=== PATIENT | male | born 1945 | race Caucasian/White ===

== ENCOUNTER 2017-02-14 17:44 | Inpatient (IN) | payer MEDICARE, BC ==
[~2017-02-14] VITALS: Ht 172.7 cm; Wt 74.8 kg
[~2017-02-14 17:44] MED LIST: ALPRAZOLAM1 MG PO; ARICEPT5 MG PO; ASPIR 8181 MG; METFORMIN HCL500 MG PO; PLAVIX75 MG PO; SERTRALINE HCL100 MG PO; TRAZODONE HCL100 MG
[2017-02-14 20:53] VITALS: BP 133/67
[2017-02-14 21:20] VITALS: BP 133/67
[2017-02-14] MEDS ORDERED: ZOLPIDEM TARTRATE 5 MG TAB PO PRN (21:30)
[2017-02-14] MEDS ORDERED: ACETAMINOPHEN 650 MG SUPP PR PRN (21:30)
[2017-02-14] MEDS ORDERED: ONDANSETRON HCL INJ 2 MG/ML VIAL IV PRN (21:30)
[2017-02-14] MEDS ORDERED: HYDRALAZINE HCL 25 MG TAB PO PRN (21:30)
[2017-02-14] MEDS ORDERED: DEXTROSE 50% SYRINGE 50 ML IV PRN (22:00)
[2017-02-14] MEDS: MORPHINE SULFATE 2 MG/ML SYR IV PRN (22:33)
[2017-02-15] VITALS: BP 111/58
[2017-02-15] MEDS ORDERED: ACETAMINOPHEN 325 MG TAB PO PRN (00:30)
[2017-02-15] MEDS ORDERED: LISINOPRIL2.5 MG PO (03:28)
[2017-02-15] MEDS ORDERED: OXYBUTYNIN CHLOR5 MG PO (03:28)
[2017-02-15] MEDS ORDERED: SIMVASTATIN20 MG PO (03:28)
[2017-02-15 04:00] VITALS: BP 102/55
[2017-02-15] MEDS ORDERED: SODIUM CHLORIDE 0.9% 250ML 250 ML ONE (05:06)
[2017-02-15] MEDS: VANCOMYCIN 1GM/NS 250 ML 250 ML IV SCH ×2 (05:13→17:59)
[2017-02-15 07:17] LABS: BASOPHILS % 0.2 % (0.0-1.0); EOSINOPHILS # (AUTO) 0.1 (0.0-0.4); EOSINOPHILS % 0.9 % (0.0-6.0); HEMATOCRIT 34.5 % (38.2-49.6); HEMOGLOBIN 12.2 g/dL (14.0-18.0); LYMPHOCYTES # (AUTO) 0.7 (1.0-3.2); LYMPHOCYTES % 11.6 % (18.0-39.1); MEAN CORPUSCULAR HEMOGLOBIN 33.1 pg (28-32); MEAN CORPUSCULAR HGB CONC 35.4 g/dL (31-35); MEAN CORPUSCULAR VOLUME 93.5 fL (81-99); MONOCYTES # (AUTO) 0.7 (0.2-0.8); MONOCYTES % 10.5 % (4.4-11.3); NEUTROPHILS # (AUTO) 4.8 (2.1-6.9); NEUTROPHILS % 76.2 % (38.7-80.0); PLATELET COUNT 119 x10e3/uL (140-360); RED BLOOD COUNT 3.69 x10e6/uL (4.3-5.7); RED CELL DISTRIBUTION WIDTH 12.5 % (11.7-14.4)
[2017-02-15] MEDS: INSULIN REGULAR, HUMAN 100 UNIT/1 ML 3ML VIAL SQ SCH ×4 (07:30→21:40)
[2017-02-15 07:37] LABS: BLOOD UREA NITROGEN 18 mg/dL (7-26); BUN/CREATININE RATIO 21 (6-25); CALCIUM 9.1 mg/dL (8.4-10.2); CARBON DIOXIDE 21 mmol/L (22-29); CHLORIDE 105 mmol/L (98-107); CREATININE, SERUM 0.87 mg/dL (0.72-1.25); EST GLOMERULAR FILTRATION RATE > 60 ML/MIN (60-); GLUCOSE 88 mg/dL (74-118); SODIUM 136 mmol/L (136-145)
[2017-02-15 08:00] VITALS: BP 121/69
[2017-02-15 09:45] LABS: CHOL/HDL RATIO 2.4 (3.9-4.7)
[2017-02-15] MEDS: HYDROCODONE/APAP 5MG-325MG TAB PO PRN ×2 (10:45→22:14)
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
[2017-02-15 12:00] VITALS: BP 120/74
[2017-02-15] MEDS: PIPER-TAZ 3.375 GM 50 ML IV SCH ×2 (13:42→22:07)
[2017-02-15] MEDS ORDERED: PIPER-TAZ 3.375 GM 100 ML IV SCH (14:00)
[2017-02-15] MEDS: ALBUTEROL/IPRATROPIUM 3 ML NEB NEB PRN (14:50)
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
[2017-02-15] MEDS ORDERED: BACITRACIN 50,000 UNIT VIAL ONE (16:04)
[2017-02-15 16:08] VITALS: BP 117/56
[2017-02-15] MEDS ORDERED: MUPIROCIN 2% OINT 22 GM TUBE ONE (16:42)
[2017-02-15] MEDS ORDERED: BUPIVACAINE HCL 0.5% INJ 30 ML VIAL INJ ONE (16:44)
[2017-02-15] MEDS: FAMOTIDINE 20 MG TAB PO SCH (17:59)
[2017-02-15] MEDS: METFORMIN HCL 500 MG TAB PO SCH (17:59)
[2017-02-15] MEDS ORDERED: DEXAMETHASONE SOD PHOS INJ 4 MG/ML VIAL ONE (18:02)
[2017-02-15] MEDS ORDERED: KETOROLAC TROMETHAMINE 30 MG/ML VIAL ONE (18:02)
[2017-02-15] MEDS ORDERED: PROPOFOL IV EMULSION 10 MG/ML 20 ML VIAL ONE (18:02)
[2017-02-15] MEDS ORDERED: ONDANSETRON HCL INJ 2 MG/ML VIAL ONE (18:02)
[2017-02-15] MEDS ORDERED: SEVOFLURANE INHAL SOLN 250 ML PEN BTL ONE (18:02)
--- NOTE | 2017-02-15 18:03 | Diagnostic Imaging Report ---
PROCEDURE:HAND RIGHT 2 VIEWS COMPARISON:None. INDICATIONS:POST-OP/DOG BITE FINDINGS: Soft tissue swelling of the radial aspect of the hand. A punctate density projects over the trapezium on AP view, not seen on lateral view and likely external to the patient. No radiopaque foreign bodies. No acute fractures or dislocations. Joint spaces are unremarkable. CONCLUSION: No acute osseous abnormalities. Dictated by: Reji Gleason M.D. on 02/15/2017 at 18:12 Electronically approved by: Reji Gleason M.D. on 02/15/2017 at 18:12
[2017-02-15] MEDS ORDERED: FENTANYL CITRATE/PF 100MCG/2 ML INJ ONE (19:05)
[2017-02-15] MEDS ORDERED: MIDAZOLAM HCL 2 MG/2 ML VIAL ONE (19:05)
[2017-02-15 20:00] VITALS: BP 112/68
[2017-02-15] MEDS: SERTRALINE HCL 100 MG TAB PO SCH (21:40)
[2017-02-15] MEDS: DONEPEZIL HCL 5 MG TAB PO SCH (21:40)
[2017-02-15] MEDS: SIMVASTATIN 20 MG TAB PO SCH (21:40)
[2017-02-16] VITALS (7 sets, daily range): BP systolic 93–136; BP diastolic 52–79
[2017-02-16] MEDS: PIPER-TAZ 3.375 GM 50 ML IV SCH ×3 (05:30→22:00)
[2017-02-16] MEDS: VANCOMYCIN 1GM/NS 250 ML 250 ML IV SCH ×2 (06:09→17:00)
[2017-02-16] MEDS: INSULIN REGULAR, HUMAN 100 UNIT/1 ML 3ML VIAL SQ SCH ×4 (07:30→20:13)
[2017-02-16] MEDS: MORPHINE SULFATE 2 MG/ML SYR IV PRN (08:02)
[2017-02-16] MEDS: CLOPIDOGREL BISULFATE 75 MG TAB PO SCH (08:05)
[2017-02-16] MEDS: METFORMIN HCL 500 MG TAB PO SCH ×2 (08:05→17:16)
[2017-02-16] MEDS: OXYBUTYNIN CHLORIDE 5 MG TAB PO SCH (08:05)
[2017-02-16] MEDS: ASPIRIN 81 MG CHEW TAB PO SCH (08:05)
[2017-02-16] MEDS: ALPRAZOLAM 1 MG TAB PO SCH (08:05)
[2017-02-16] MEDS: FAMOTIDINE 20 MG TAB PO SCH ×2 (08:05→17:16)
[2017-02-16] MEDS: LISINOPRIL 2.5 MG TAB PO SCH (08:05)
[2017-02-16] MEDS ORDERED: DEXTROSE 50% SYRINGE 50 ML IV PRN (08:45)
--- NOTE | 2017-02-16 09:14 | Progress Note ---
DATE: February 16, 2017 TIME: 8:43 a.m. OVERNIGHT: Patient underwent further surgery for debridement of the hand. REVIEW OF SYSTEMS: Denies any dizziness or chest pain. VITAL SIGNS: Reviewed. PHYSICAL EXAMINATION GENERAL APPEARANCE: A tired-appearing man, resting in bed. HEENT: Anicteric. CARDIOVASCULAR: Normal S1 and S2. LUNGS: Moderate breath sounds. ABDOMEN: Soft, nontender and nondistended. EXTREMITIES: No edema or calf tenderness of the lower extremities. Dressing on the right hand dorsal surface with further debridement noted. No odor. There are tenderness and warmth. SKIN: Dry. PSYCHIATRIC: Flat affect. NEUROLOGIC: Alert and oriented times 3. LABS: Reviewed. MEDICATIONS: Reviewed. ASSESSMENT AND PLAN: This is a 71-year-old man. 1. Dog bite. 2. Right hand cellulitis/status post debridement. 3. Diabetes mellitus, type 2. Hemoglobin A1c 4.9, LDL 65, triglycerides 62. 4. Overweight state. 5. Hand pain. 6. Anxiety/depression. 7. Coronary artery disease with history of stent. PLAN 1. Continue IV vancomycin and IV Zosyn. 2. Patient is status post debridement. 3. Continue metformin and diabetes control. 4. Continue antihypertensive medications. 5. Continue anxiolytics. 6. Obtain labs this morning and obtain Accu-Cheks. Job#: [id number]
--- NOTE | 2017-02-16 09:33 | Operative Report ---
DATE OF PROCEDURE: February 15, 2017 PREOPERATIVE DIAGNOSES 1. Dog bite, right hand. 2. Purulent extensor tenosynovitis, right hand. POSTOPERATIVE DIAGNOSES 1. Dog bite, right hand. 2. Purulent extensor tenosynovitis, right hand. PROCEDURE: Drainage of extensor tendon sheath, right hand. ANESTHESIA: General. HISTORY: The patient is a 71-year-old right-hand dominant male who was admitted on February 14, 2017. He states that he sustained a dog bite to the right hand approximately 4 days prior to admission. He states that on February 14, 2017, the hand was quite swollen and infected, and he went to an urgent care center where they performed and incision and drainage. He was then sent to [facility] where he was admitted for further care and treatment. He was seen on the morning on February 15, 2017, and the dressing was removed, and copious amounts of purulent exudate was still emanating from the wound. For that reason, he was taken to the OR urgently that day for definitive treatment. The risks, benefits and alternatives of treatment were discussed with the patient. He is prepared to undergo the procedures outlined. DETAILS OF PROCEDURE: Patient was marked preoperatively in the holding area. He was brought to the operating theater. After the induction of adequate general anesthesia, he was prepped and draped in a supine position. A time out was performed. The right upper extremity was elevated for 3 minutes, and then a tourniquet was inflated to a pressure of 250 mmHg. The previous incision was marked out, and extensions proximally and distally were marked out as well. The incisions were made through the skin and subcutaneous tissues and venous tributaries were controlled with bipolar cautery. Immediately upon entering the subcutaneous space, copious amounts of purulent exudate was noted. The incision was deepened down to the tendon of the extensor indices proprius where purulence was noted along its tract. At this point, the inspection of all the extensor tendons was performed, and then copious amounts of irrigation ensued until the effluent was then clean. At this point, inspection of all quadrants of the dorsal aspect of the hand was performed. No further loculations were noted. The tendons appeared to be intact and did not appear to be damaged in any. Radiographs showed no acute bony injuries or dislocations. Once the wound was completely free of purulent exudate, it was then packed with 0.25-inch packing. Then the skin was loosely approximated using 5-0 nylon in an interrupted horizontal mattress fashion. A Marcaine field block was performed at the operative site. The tourniquet was deflated. All the fingers pinked up nicely. A sterile bulky conforming bandage was applied. The patient was returned to the recovery room in satisfactory condition, and then transferred back to his hospital room for further care and treatment. Job#: [id number] DESTINY
[2017-02-16 09:36] LABS: BASOPHILS % 0.2 % (0.0-1.0); EOSINOPHILS # (AUTO) 0.1 (0.0-0.4); EOSINOPHILS % 0.9 % (0.0-6.0); HEMATOCRIT 32.2 % (38.2-49.6); HEMOGLOBIN 11.1 g/dL (14.0-18.0); LYMPHOCYTES # (AUTO) 0.8 (1.0-3.2); LYMPHOCYTES % 13.8 % (18.0-39.1); MEAN CORPUSCULAR HEMOGLOBIN 32.9 pg (28-32); MEAN CORPUSCULAR HGB CONC 34.5 g/dL (31-35); MEAN CORPUSCULAR VOLUME 95.5 fL (81-99); MONOCYTES # (AUTO) 0.5 (0.2-0.8); MONOCYTES % 7.9 % (4.4-11.3); NEUTROPHILS # (AUTO) 4.5 (2.1-6.9); NEUTROPHILS % 76.9 % (38.7-80.0); PLATELET COUNT 115 x10e3/uL (140-360); RED BLOOD COUNT 3.37 x10e6/uL (4.3-5.7); RED CELL DISTRIBUTION WIDTH 12.3 % (11.7-14.4)
[2017-02-16 09:49] LABS: ANION GAP 13.1 mmol/L (8-16); BLOOD UREA NITROGEN 19 mg/dL (7-26); BUN/CREATININE RATIO 20 (6-25); CALCIUM 8.8 mg/dL (8.4-10.2); CARBON DIOXIDE 21 mmol/L (22-29); CHLORIDE 105 mmol/L (98-107); CREATININE, SERUM 0.94 mg/dL (0.72-1.25); EST GLOMERULAR FILTRATION RATE > 60 ML/MIN (60-); GLUCOSE 174 mg/dL (74-118); POTASSIUM 4.1 mmol/L (3.5-5.1); SODIUM 135 mmol/L (136-145)
[2017-02-16] MEDS: ALBUTEROL/IPRATROPIUM 3 ML NEB NEB PRN ×2 (15:00→17:00)
[2017-02-16] MEDS: HYDROCODONE/APAP 5MG-325MG TAB PO PRN ×2 (17:17→23:20)
[2017-02-16] MEDS: SERTRALINE HCL 100 MG TAB PO SCH (21:02)
[2017-02-16] MEDS: DONEPEZIL HCL 5 MG TAB PO SCH (21:02)
[2017-02-16] MEDS: SIMVASTATIN 20 MG TAB PO SCH (21:02)
[2017-02-17] VITALS: BP 112/50
[2017-02-17 04:00] VITALS: BP 100/63
[2017-02-17] MEDS: VANCOMYCIN 1GM/NS 250 ML 250 ML IV SCH (05:00)
[2017-02-17] MEDS: PIPER-TAZ 3.375 GM 50 ML IV SCH ×2 (05:34→14:04)
[2017-02-17] MEDS: INSULIN REGULAR, HUMAN 100 UNIT/1 ML 3ML VIAL SQ SCH ×2 (07:30→11:30)
[2017-02-17 07:46] VITALS: BP 120/59
[2017-02-17] MEDS: OXYBUTYNIN CHLORIDE 5 MG TAB PO SCH (08:37)
[2017-02-17] MEDS: METFORMIN HCL 500 MG TAB PO SCH (08:37)
[2017-02-17] MEDS: ALPRAZOLAM 1 MG TAB PO SCH (08:37)
[2017-02-17] MEDS: FAMOTIDINE 20 MG TAB PO SCH (08:37)
[2017-02-17] MEDS: ASPIRIN 81 MG CHEW TAB PO SCH (08:37)
[2017-02-17] MEDS: CLOPIDOGREL BISULFATE 75 MG TAB PO SCH (08:37)
[2017-02-17] MEDS: LISINOPRIL 2.5 MG TAB PO SCH (08:38)
[2017-02-17] MEDS: HYDROCODONE/APAP 5MG-325MG TAB PO PRN (08:38)
[2017-02-17] MEDS ORDERED: MUPIROCIN 2% OINT 22 GM TUBE TOP SCH (09:00)
[2017-02-17 11:48] VITALS: BP 130/77
[2017-02-17] MEDS: ALBUTEROL/IPRATROPIUM 3 ML NEB NEB PRN (12:22)
[2017-02-17] MEDS ORDERED: VANCOMYCIN 1GM/NS 250 ML 250 ML IV SCH (17:00)
== END 2017-02-17 15:19 | DRG 580 ==
LOC: MED/SURG3 17:44
PROVIDERS: ADMIT Internal Medicine; ATTEND Internal Medicine
PROC: 0L970ZX Drainage of Right Hand Tendon, Open Approach, Diagnostic (ICD-10-PCS; principal; 2017-02-15 15:00)
DX: S61.451A Open bite of right hand, initial encounter (principal); L03.90 Cellulitis, unspecified; Z99.81 Dependence on supplemental oxygen; J44.9 Chronic obstructive pulmonary disease, unspecified; E11.9 Type 2 diabetes mellitus without complications; I10 Essential (primary) hypertension; F32.9 Major depressive disorder, single episode, unspecified; I25.10 Atherosclerotic heart disease of native coronary artery without angina pectoris; F10.20 Alcohol dependence, uncomplicated; Z79.4 Long term (current) use of insulin; Z95.5 Presence of coronary angioplasty implant and graft; E66.3 Overweight; Z68.25 Body mass index [BMI] 25.0-25.9, adult; F41.9 Anxiety disorder, unspecified; B96.89 Other specified bacterial agents as the cause of diseases classified elsewhere
CPT/HCPCS: 36415; 80048; 80061; 80202; 82948; 83036; 85025; 87040; 87071; 87075; 87205; 97139; J1100; J1885; J2250; J2270; J2405; J2543; J3370; J7050

== ENCOUNTER 2017-07-01 12:24 | Emergency (ER) | payer MEDICARE, BC ==
[~2017-07-01] VITALS: Ht 172.7 cm; Wt 68.0 kg
[~2017-07-01 12:24] MED LIST changes: +LISINOPRIL2.5 MG PO; +OXYBUTYNIN CHLOR5 MG PO; +SIMVASTATIN20 MG PO
[2017-07-01] MEDS ORDERED: ASPIRIN 81 MG CHEW TAB PO ONE (14:00)
[2017-07-01] MEDS ORDERED: ONDANSETRON HCL 4 MG ORAL DISINTEGRATING TAB PO ONE (14:00)
[2017-07-01] MEDS ORDERED: SODIUM CHLORIDE 0.9% 1000ML 1,000 ML IV STA (14:00)
[2017-07-01 14:11] LABS: BASOPHILS % 0.1 % (0.0-1.0); EOSINOPHILS # (AUTO) 0.1 (0.0-0.4); EOSINOPHILS % 0.7 % (0.0-6.0); HEMATOCRIT 42.5 % (38.2-49.6); HEMOGLOBIN 15.2 g/dL (14.0-18.0); LYMPHOCYTES # (AUTO) 0.9 (1.0-3.2); LYMPHOCYTES % 13.2 % (18.0-39.1); MEAN CORPUSCULAR HEMOGLOBIN 33.1 pg (28-32); MEAN CORPUSCULAR HGB CONC 35.8 g/dL (31-35); MEAN CORPUSCULAR VOLUME 92.6 fL (81-99); MONOCYTES # (AUTO) 0.5 (0.2-0.8); MONOCYTES % 7.9 % (4.4-11.3); NEUTROPHILS # (AUTO) 5.2 (2.1-6.9); NEUTROPHILS % 77.7 % (38.7-80.0); PLATELET COUNT 147 x10e3/uL (140-360); RED BLOOD COUNT 4.59 x10e6/uL (4.3-5.7); RED CELL DISTRIBUTION WIDTH 12.4 % (11.7-14.4)
[2017-07-01 14:15] LABS: INR 1.05; PARTIAL THROMBOPLASTIN TIME 26.6 seconds (23.8-35.5); PROTHROMBIN TIME 12.9 seconds (11.9-14.5)
[2017-07-01 14:42] LABS: ALANINE AMINOTRANSFERASE 34 IU/L (0-55); ALBUMIN 4.2 g/dL (3.5-5.0); ALBUMIN/GLOBULIN RATIO 1.3 (0.8-2.0); ALKALINE PHOSPHATASE 58 IU/L (40-150); AMYLASE 54 U/L (25-125); ANION GAP 18.7 mmol/L (8-16); BLOOD UREA NITROGEN 17 mg/dL (7-26); BUN/CREATININE RATIO 17 (6-25); CALCIUM 10.2 mg/dL (8.4-10.2); CARBON DIOXIDE 24 mmol/L (22-29); CHLORIDE 99 mmol/L (98-107); CREATINE KINASE 65 IU/L (30-200); CREATININE, SERUM 0.99 mg/dL (0.72-1.25); EST GLOMERULAR FILTRATION RATE > 60 ML/MIN (60-); GLUCOSE 125 mg/dL (74-118); LIPASE 111 U/L (8-78); POTASSIUM 3.7 mmol/L (3.5-5.1); SODIUM 138 mmol/L (136-145)
[2017-07-01 15:00] LABS: CLARITY,URINE SL CLOUDY (CLEAR); COLOR,URINE YELLOW (YELLOW); LEUKOCYTE ESTERASE ,URINE NEGATIVE (NEGATIVE); NITRITE,URINE NEGATIVE (NEGATIVE); PROTEIN,URINE DIPSTICK 2+ (NEGATIVE)
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
[2017-07-01 15:01] LABS: KETONES,URINE 1+ (NEGATIVE); URINE UROBILINOGEN 0.2 mg/dL (0.2 - 1)
[2017-07-01 15:02] LABS: BILIRUBIN,URINE 1+ (NEGATIVE)
[2017-07-01 15:12] LABS: BACTERIA,URINE FEW /HPF; EPITHELIAL CELLS,URINE RARE /LPF; MUCUS,URINE FEW (RARE)
[2017-07-01 16:18] VITALS: BP 144/76
== END 2017-07-01 16:35 | disposition home or self-care (01) ==
LOC: ER 12:24
DX: R11.2 Nausea with vomiting, unspecified (principal); R07.89 Other chest pain; R19.7 Diarrhea, unspecified; N18.4 Chronic kidney disease, stage 4 (severe); J44.9 Chronic obstructive pulmonary disease, unspecified; Z99.81 Dependence on supplemental oxygen; Z85.118 Personal history of other malignant neoplasm of bronchus and lung
CPT/HCPCS: 36415; 71045; 80053; 81001; 82150; 82550; 82553; 83690; 84484; 85025; 85610; 85730; 87086; 93005; 99284; J7030